=== PATIENT | male | born 1940 | race African-American/Black ===

== ENCOUNTER 2020-03-31 20:23 | Emergency (ER) | payer MEDICARE, OTHER ==
[~2020-03-31] VITALS: Ht 177.8 cm; Wt 97.0 kg
[2020-03-31] MEDS ORDERED: KETOROLAC 30MG/ML VIAL IV STA (22:42)
[2020-03-31] MEDS ORDERED: SODIUM CHLORIDE 0.9% 1,000 ML IV ONE (22:42)
[2020-03-31 23:46] LABS: EOSINOPHILS % 2.2 % (0.0-5.0); HEMATOCRIT. 40.3 % (42.0-52.0); HEMOGLOBIN. 13.9 g/dL (14.0-18.0); LYMPHOCYTES % 26.2 % (20.0-50.0); MEAN CORPUSCULAR HEMOGLOBIN 32.5 pg (28.0-32.0); MEAN CORPUSCULAR VOLUME 94.5 fL (80.0-94.0); MEAN PLATELET VOLUME 8.8 fl (7.4-10.4); MONOCYTES % 10.4 % (2.0-8.0); NEUTROPHILS % 60.2 % (40.0-76.0); PLATELET 168 x1000/uL (130-400); RED BLOOD CELL COUNT 4.26 mill/uL (4.7-6.1)
[2020-03-31 23:59] LABS: CHLORIDE 103 mEq/L (98-107)
[2020-04-01 02:24] VITALS: BP 132/74
== END 2020-04-01 02:25 | disposition home or self-care (01) ==
LOC: ER 20:23
DX: R51 Headache (principal); K08.89 Other specified disorders of teeth and supporting structures; E11.9 Type 2 diabetes mellitus without complications
CPT/HCPCS: 36415; 70450; 80053; 85025; 96374; 99284; J1885; J7030